=== PATIENT | female | born 1980 | race Caucasian/White ===

== ENCOUNTER 2022-10-19 17:30 | Emergency (ER) | payer MEDICAID ==
[~2022-10-19] VITALS: Ht 152.4 cm; Wt 158.8 kg
[2022-10-19] MEDS ORDERED: HALOPERIDOL IM 5 MG/ML VIAL IM ONE (17:45)
[2022-10-19] MEDS ORDERED: diphenhydrAMINE 50 MG/ML VIAL IM ONE (17:45)
[2022-10-19] MEDS ORDERED: HALOPERIDOL IM 5 MG/ML VIAL ONE (17:46)
[2022-10-19] MEDS ORDERED: diphenhydrAMINE 50 MG/ML VIAL ONE (17:46)
[2022-10-19] MEDS ORDERED: LORazepam 2 MG/ML VIAL ONE ×2 (17:47→18:28)
[2022-10-19] MEDS ORDERED: LORazepam 2 MG/ML VIAL IM ONE (17:50)
--- NOTE | 2022-10-19 17:53 | NUR ---
PATIENT PRESENTS TO ED WITH ALTERED MENTAL STATUS. BIBAM FROM [facility] D/T ERRATIC BEHAVIOR. PT IS UNCOOPERATIVE AND WON'T ANSWER QUESTIONS. UPON TRYING TO TAKE VITAL SIGNS PATIENT STATED "DON'T TRY ME BITCH!" "TRY ME MOTHERF*CKERS!!" "I WILL F*CKING HURT YOU BITCH". PATIENT RAISED HER FIST AT THE STAFF AND CONTINUED TO YELL AGGRESSIVELY AT THE STAFF. MD MADE AWARE OF CURRENT PATIENT STATUS. SKIN IS PINK/WARM/DRY; LUNGS CLEAR BL, AIRWAY PATENT; HR EVEN AND REGULAR; POSITIONED FOR COMFORT; HOB ELEVATED; BEDRAILS UP X2; BED DOWN. WILL CONTINUE WITH PLAN OF CARE
--- NOTE | 2022-10-19 17:56 | NUR ---
42 Y/O F BIBA, PER PT MOTHER THEY WERE IN [place] C/O CONFUSION AND BEHAVIORAL ISSUES, PT MOTHER CALLED 911. UPON EMS ARRIVAL REFUSED CARE BY MALE FIRE TEAM, PT STATED " I AM RELIGION DO NOT TOUCH ME". AFTER PT BECAME NON VERBAL AND REFUSE TO FOLLOW COMAND. ALLERGIES: PENICILLIN PMH: HTN, ANXIETY
[2022-10-19] MEDS ORDERED: OLANZapine 10 MG VIAL IM ONE (18:35)
--- NOTE | 2022-10-19 19:00 | NUR ---
noted to have pt with no restraint, pt sleeping comfortably attached to quality assurance monitor body. No s/s distress noted at this time.
--- NOTE | 2022-10-19 19:36 | NUR ---
PT WANTING TO VOID. BED FOOTE PROVIDED FOR PATIENT.
--- NOTE | 2022-10-19 19:51 | NUR ---
ATTEMPTED TO DRAW BLOOD ON PT. ATTEMPTED 3X UNSUCCESSFUL
[2022-10-19 20:08] LABS: APPEARANCE,URINE CLEAR (CLEAR); BILIRUBIN,URINE NEGATIVE (NEGATIVE); BLOOD, URINE TRACE-I (NEGATIVE); COLOR,URINE YELLOW (YELLOW); LEUKOCYTE ESTERASE ,URINE NEGATIVE (NEGATIVE); NITRITE, URINE NEGATIVE (NEGATIVE); UGLUCOSE NEGATIVE (NEGATIVE)
--- NOTE | 2022-10-19 20:10 | NUR ---
PT AMBULATED TO THE BATHROOM WITH A STEADY GAIT
[2022-10-19 20:17] LABS: BARBITURATE, URINE POSITIVE ng/ml (NEG <=200); BENZODIAZEPINE, URINE NEGATIVE ng/mL (NEG <=200); CANNABINOID, URINE NEGATIVE ng/mL (NEG <=50); COCAINE, URINE NEGATIVE ng/mL (NEG <=300); OPIATE, URINE NEGATIVE ng/mL (NEG <=2000); PHENCYCLIDINE SCREEN,URINE NEGATIVE ng/mL (NEG <=25)
[2022-10-19 20:20] LABS: RBC,URINE 0-5 /HPF (0-5); WBC,URINE 0-5 /HPF (0-5)
[2022-10-19 21:31] LABS: BASOPHILS % (AUTO) 0.3 % (0.0-2.0); EOSINOPHILS % (AUTO) 0.2 % (0.0-4.0); HEMATOCRIT 35.7 % (36-48); HEMOGLOBIN 11.7 g/dL (12.0-16.0); LYMPHOCYTES # (AUTO) 1.3 K/uL (2.5-16.5); LYMPHOCYTES % (AUTO) 13.6 % (20.5-51.1); MEAN CORPUSCULAR HEMOGLOBIN 26 pg (27-31); MEAN CORPUSCULAR HGB CONC 33 g/dL (33-37); MEAN CORPUSCULAR VOLUME 79.1 fL (80-94); MONOCYTES # (AUTO) 0.5 K/uL (0.8-1.0); MONOCYTES % (AUTO) 4.6 % (1.7-9.3); NEUTROPHILS % (AUTO) 81.3 % (42.2-75.2); PLATELET COUNT (AUTO) 258 K/uL (140-450); RED BLOOD CELL COUNT(AUTO) 4.51 MIL/uL (4.20-5.40); WHITE BLOOD COUNT (AUTO) 9.9 K/uL (4.8-10.8)
--- NOTE | 2022-10-19 21:37 | NUR ---
Spoke with brother (Cole) of patient would like to ask about updates on patient.
[2022-10-19 22:05] LABS: ACETAMINOPHEN < 0.5 ug/ml (10-30); ALBUMIN 3.1 g/dL (3.4-5.0); ANION GAP 5.9 (8-16); ASPARTATE AMINOTRANSFERASE 16 U/L (15-37); CARBON DIOXIDE 26.6 mmol/L (21-32); CHLORIDE 108 mmol/L (98-107); CREATININE 0.6 mg/dL (0.6-1.3); GFR ARICAN-AMERICAN 142 mL/min (>90); GLUCOSE 114 mg/dL (74-106); POTASSIUM 3.5 mmol/L (3.5-5.1); SALICYLATE < 2.8 mg/dL (2.8-20.0); SODIUM SERUM 137 mmol/L (136-145); TOTAL BILIRUBIN 0.3 mg/dL (0.0-1.0); UREA NITROGEN, BLOOD 6 mg/dL (7-18)
--- NOTE | 2022-10-19 23:18 | NUR ---
swabbed pt and sent to lab
--- NOTE | 2022-10-20 07:13 | NUR ---
PSYCH DOCTOR SPEAKING WITH PT. PT BEING TELEPSYCH AT THIS TIME
--- NOTE | 2022-10-20 07:18 | NUR ---
Pt report given to Brittany IRELAND. Transfer of care at this time.
--- NOTE | 2022-10-20 07:18 | NUR ---
REPORT RECEIVED FROM ANAHY RN. ASSUMED CARE AT THIS TIME
--- NOTE | 2022-10-20 07:20 | NUR ---
PT ON TELEPSYCH CALL W/ MD WHITE
--- NOTE | 2022-10-20 07:28 | NUR ---
PER MD WHITE , PT OK FOR D/C
[2022-10-20] MEDS ORDERED: OLANZapine 5 MG ODT PO SCH (07:30)
[2022-10-20] MEDS ORDERED: ACETAMINOPHEN 325 MG TAB PO ONE (07:50)
--- NOTE | 2022-10-20 08:44 | NUR ---
Patient discharged with v/s stable. Written and verbal after care instructions FOR PSYCHOSIS given and explained. Patient verbalized understanding. Ambulatory with steady gait. All questions addressed prior to discharge. Advised to follow up with PMD.
[2022-10-20 08:45] VITALS: BP 135/76
--- NOTE | 2022-10-20 08:45 | NUR ---
The patient's care was reviewed and supervised by Veronica Alves RN.
[2022-10-20] MEDS ORDERED: OLAN2.5T1 PO (09:36)
== END 2022-10-20 08:44 | disposition home or self-care (01) ==
LOC: MED 17:30
DX: R41.82 Altered mental status, unspecified (principal); Z20.822 Contact with and (suspected) exposure to COVID-19; R41.0 Disorientation, unspecified; R45.1 Restlessness and agitation; F29 Unspecified psychosis not due to a substance or known physiological condition; I10 Essential (primary) hypertension; Z88.0 Allergy status to penicillin; Z79.899 Other long term (current) drug therapy
CPT/HCPCS: 36415; 70450; 80053; 80305; 81001; 85025; 87426; 87635; 93005; 96372; 99285; C9803; G0480; G0482; J1200; J1630; J2060; J3490